=== PATIENT | female | born 1995 | race Two or more races ===

== ENCOUNTER 2023-05-18 03:52 | Emergency (ER) | payer MEDICAID ==
[~2023-05-18] VITALS: Ht 167.6 cm; Wt 74.8 kg
[2023-05-18] MEDS ORDERED: HYDROCODONE/APAP 5/325MG TABLET ONE (04:16)
[2023-05-18] MEDS: HYDROCODONE/APAP 5/325MG TABLET PO ONE (04:17)
[2023-05-18 04:22] VITALS: BP 121/82; TEMP 98.1; O2SAT 98
== END 2023-05-18 04:22 | disposition home or self-care (01) ==
LOC: ER 03:56
DX: K08.89 Other specified disorders of teeth and supporting structures (principal); G89.18 Other acute postprocedural pain